=== PATIENT | female | born 1955 | race Caucasian/White ===

== ENCOUNTER 2018-04-24 10:37 | Outpatient (CLI) | payer OTHER | END 2018-04-24 10:38 | disposition home or self-care (01) | LOC: BICMAMMO 10:37 | PROVIDERS: ATTEND Obstetrics & Gynecology | DX: Z12.31 Encounter for screening mammogram for malignant neoplasm of breast (principal); R92.1 Mammographic calcification found on diagnostic imaging of breast | CPT/HCPCS: 77063; 77067 ==

== ENCOUNTER 2025-08-05 11:27 | Outpatient (CLI) | payer MEDICARE | END 2025-08-05 11:28 | disposition home or self-care (01) | LOC: SCSRAD 11:27 | PROVIDERS: ATTEND Nurse Practitioner Family | DX: S99.922A Unspecified injury of left foot, initial encounter (principal); S92.422A Displaced fracture of distal phalanx of left great toe, initial encounter for closed fracture ==

== ENCOUNTER 2025-08-18 09:51 | Outpatient (CLI) | payer MEDICARE | END 2025-08-18 09:52 | disposition home or self-care (01) | LOC: SCSBT 09:51 | PROVIDERS: ATTEND Obstetrics & Gynecology | DX: Z13.820 Encounter for screening for osteoporosis (principal); Z78.0 Asymptomatic menopausal state | CPT/HCPCS: 77080 ==